=== PATIENT | female | born 1985 | race Caucasian/White ===

== ENCOUNTER 2020-03-06 14:11 | Emergency (ER) | payer OTHER ==
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
== END 2020-03-06 14:42 | disposition home or self-care (01) ==
LOC: VM.ED 14:11
DX: S80.212A Abrasion, left knee, initial encounter (principal); V19.9XXA Pedal cyclist (driver) (passenger) injured in unspecified traffic accident, initial encounter
CPT/HCPCS: 99282; 99283